=== PATIENT | female | born 1980 | race Caucasian/White ===

== ENCOUNTER 2024-08-23 00:52 | Emergency (ER) | payer SELFPAY ==
[~2024-08-23] VITALS: Ht 162.6 cm; Wt 59.0 kg
[2024-08-23 00:57] VITALS: BP 102/68; PULSE 60; RESP 18; TEMP 36.4; O2SAT 100
[2024-08-23 02:30] LABS: CHLORIDE 107 mEq/L (98-107); POTASSIUM 3.9 mEq/L (3.5-5.1); SODIUM 139 mEq/L (136-145)
[2024-08-23 02:31] LABS: CALCIUM 9.4 mg/dL (8.7-10.4); CARBON DIOXIDE 24 mEq/L (21-32)
[2024-08-23 02:36] LABS: CREATININE 0.7 mg/dL (0.6-1.0); GLUCOSE 102 mg/dL (70-105); UREA NITROGEN BLOOD 9 mg/dL (9-23)
[2024-08-23 02:38] LABS: TROPONIN I HIGH SENSITIVITY < 4 ng/L (3.0-34)
[2024-08-23 02:43] LABS: BASOPHILS % 0.3 % (0.0-2.0); EOSINOPHILS % 1.3 % (0.0-5.0); HEMATOCRIT. 40.8 % (36.0-48.0); HEMOGLOBIN. 13.5 g/dL (12.0-16.0); LYMPHOCYTES % 38.1 % (20.0-50.0); MEAN CORPUSCULAR HEMOGLOBIN 29.1 pg (28.0-32.0); MEAN PLATELET VOLUME 7.8 fl (7.4-10.4); MONOCYTES % 8.5 % (2.0-8.0); NEUTROPHILS % 51.8 % (40.0-76.0); PLATELET 317 x1000/uL (130-400); RED BLOOD CELL COUNT 4.64 mill/uL (4.2-5.4); RED CELL DISTRIBUTION WIDTH 13.4 % (11.6-14.6); WHITE BLOOD COUNT 4.5 x1000/uL (4.5-11.0)
[2024-08-23 03:08] LABS: HCG SCREEN NEGATIVE
[2024-08-23 05:08] LABS: TROPONIN I HIGH SENSITIVITY < 4 ng/L (3.0-34)
== END 2024-08-23 05:28 | disposition home or self-care (01) ==
LOC: ER 00:52
DX: R55 Syncope and collapse (principal); R53.1 Weakness; R61 Generalized hyperhidrosis
CPT/HCPCS: 36415; 71045; 80048; 83605; 84484; 84703; 85025; 93005; 99285